=== PATIENT | male | born 1965 | race Caucasian/White ===

== ENCOUNTER 2016-06-04 09:56 | Day surgery (SDC) | payer BC ==
[2016-06-04] MEDS ORDERED: MIDAZOLAM HCL 2 MG/2 ML SYR IV ONE (10:12)
[2016-06-04] MEDS ORDERED: LIDOCAINE HCL 1% 20 ML VIAL SUBCUT ONE ×2 (10:12→13:43)
[2016-06-04] MEDS ORDERED: ACETAMINOPHEN 1,000 MG/100 ML VIAL IV SCH (10:15)
[2016-06-04] MEDS ORDERED: FAMOTIDINE IN SALINE, ISO-OSM 20 MG/50 ML PIGGYBACK IV SCH ×2 (10:15→13:43)
[2016-06-04] MEDS ORDERED: ceFAZolin 1 GM/10 ML VIAL ONE (10:31)
[2016-06-04] MEDS ORDERED: MIDAZOLAM HCL 2 MG/2 ML VIAL ONE (10:31)
[2016-06-04] MEDS ORDERED: LACTATED RINGERS 1,000 ML IV SCH ×3 (11:00→14:00)
[2016-06-04] MEDS ORDERED: ceFAZolin 1 GM in NORMAL SALINE MINI-BAG+ 100 ML IV ONE ×2 (11:00)
[2016-06-04] MEDS ORDERED: FENTANYL 250 MCG/5 ML VIAL ONE (11:31)
[2016-06-04] MEDS ORDERED: ETOMIDATE 40 MG/20 ML VIAL IV ONE (11:31)
[2016-06-04] MEDS ORDERED: KETOROLAC TROMETHAMINE 30 MG/ML VIAL ONE (11:32)
[2016-06-04] MEDS ORDERED: ONDANSETRON HCL 4 MG/2 ML VIAL ONE (11:32)
[2016-06-04] MEDS ORDERED: DEXAMETHASONE 10 MG/ML VIAL ONE (11:32)
[2016-06-04] MEDS ORDERED: EPHEDrine SULFATE 50 MG/ML VIAL ONE (12:33)
[2016-06-04] MEDS ORDERED: HEMOSTATIC MATRIX 5 ML SYR MISC ONE (12:57)
[2016-06-04] MEDS ORDERED: BUPIVACAINE HCL/PF 0.25% 10 ML VIAL INJ ONE (13:08)
[2016-06-04] MEDS ORDERED: BUPIVACAINE/EPI 0.25% 1 VIAL VIAL ONE (13:08)
[2016-06-04 13:41] VITALS: TEMP 96.8
[2016-06-04] MEDS ORDERED: ONDANSETRON HCL 4 MG/2 ML VIAL IV PRN (13:43)
[2016-06-04] MEDS ORDERED: HYDROmorphone HCL 1 MG/ML SYR IV PRN (13:43)
[2016-06-04] MEDS ORDERED: FENTANYL 100 MCG/2 ML VIAL IV PRN (13:43)
[2016-06-04] MEDS ORDERED: MORPHINE SULFATE 10 MG/ML SYR IV PRN (13:43)
[2016-06-04 14:05] VITALS: O2SAT 96
--- NOTE | 2016-06-04 14:13 | PROCEDURE NOTE: Gen Surgery ---
General Surgery Procedure Note - Date of Encounter Date of Encounter: 06/04/16 - Brief Operative Note (1) Unilateral inguinal hernia with obstruction and without gangrene Date of procedure: 06/04/16 Pre-Op Diagnosis: same Post-op diagnosis: same Implants: mesh Pathology: none sent Sponge and instrument counts: correct Condition: stable Disposition: same day Narrative: Pantaloon defect with a larger direct defect and indirect defect attached to a large cord lipoma.
[2016-06-04 14:14] VITALS: BP 105/72; PULSE 79; RESP 14
--- NOTE | 2016-06-04 16:10 | OPERATIVE REPORT ---
DATE OF SURGERY: 06/04/16 SURGEON: Mayo Tillman MD ANESTHESIA: General via LMA by Thiago Henao CRNA. PREOPERATIVE DIAGNOSIS: Left inguinal hernia. POSTOPERATIVE DIAGNOSIS: Pantaloon type left inguinal hernia. PROCEDURE PERFORMED: Repair of direct and indirect left inguinal hernias. FINDINGS: The patient had fairly large direct defect. He also had an indirect sac that was attached to a cord lipoma. To repair this a Coopers ligament type repair was used to keep the direct defect in reduction and then a plug of mesh was placed in the deep ring with a Chelsie type mesh over both these areas. SUMMARY: The patient was taken to the operating room and placed in the supine position. His left inguinal region was then shaved and prepped with a ChloraPrep solution. Three minutes were allowed to elapse for the prep to dry. A timeout was called and the correct patient, correct preoperative medications and correct procedure were verified. Draping then occurred. The anterior iliac spine and pubic tubercle were marked and the distance between them measured. The midpoint was taken to be the internal ring. Slightly above this area a 7 cm incision was marked out. Marcaine 0.25% without epinephrine was infiltrated in the skin and subcutaneous tissues. The skin was then sharply incised. Deeper dissection was done with the cautery. Dissection was carried down to the external oblique aponeurosis which was identified. It was incised along the lines of its fibers through the external ring. The superior and inferior leaves were grasped and then a Patel drain was placed around the cord near the pubic tubercle. The cord was freed up from the direct defect. The defect was then reduced. Next, a running 2-0 PDS suture was used to bring down the internal oblique to Coopers ligament. This was done in a running fashion like a Germain ligament repair. This kept the direct defect in reduction. Next, the cord and the lipoma on the cord were dissected upon. The cord lipoma was dissected free and reduced back into the preperitoneal position. Attention was then placed to looking for the ilioinguinal nerve and the iliohypogastric nerves. I could not identify these and it was felt that they were probably in a deeper layer. Therefore a Chelsie type mesh was brought in the field and sewn in place by first running a suture from the pubic tubercle to the inguinal ligament and tying this lateral to the internal ring. The superior leaf was attached in interrupted fashion with the 2 leaves wrapped around the cord. A 10 cm piece of mesh was rolled up into a plug and placed through the deep ring and sewn in place laterally with a single PDS suture. The Chelsie mesh was then placed over the top of this and tucked underneath the external oblique aponeurosis. Floseal was then placed above and below the mesh. Next, the external oblique aponeurosis was closed with running 3-0 Vicryl. The subcuticular was closed with interrupted 3-0 Vicryl. The skin was closed with running subcuticular 4-0 Monocryl. Steri-Strips and dressing were then placed. The patient was taken from the operating room to the recovery room having tolerated the procedure well. EPHRAIM
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
== END 2016-06-04 14:30 | disposition home or self-care (01) ==
LOC: SDS 09:56
PROVIDERS: ATTEND Surgery
DX: K40.30 Unilateral inguinal hernia, with obstruction, without gangrene, not specified as recurrent (principal); M51.9 Unspecified thoracic, thoracolumbar and lumbosacral intervertebral disc disorder; K21.9 Gastro-esophageal reflux disease without esophagitis; I25.10 Atherosclerotic heart disease of native coronary artery without angina pectoris; Z72.0 Tobacco use; E78.5 Hyperlipidemia, unspecified; Z79.899 Other long term (current) drug therapy
CPT/HCPCS: C1781; J0690; J1100; J1885; J2250; J2405